=== PATIENT | female | born 1985 | race Caucasian/White ===

== ENCOUNTER 2017-07-05 12:09 | Emergency (ER) | payer OTHER ==
[~2017-07-05] VITALS: Ht 170.2 cm; Wt 63.5 kg
[~2017-07-05 12:09] MED LIST: EXCEDRIN ASA F1 EAC1; MULTIVITAMINS1 EAC7 PO; NAPROSYN500 MG PO; NOHOMEMEDICATIONS; NORCO 5-325 TA1 EACH PO; NORFLEX100 MG PO; ULTRAM 50MG TAB50 MG PO; WELLBUTRIN SR150 MG PO; XANAX 0.5 MG0.5 M1 PO; ZOFRAN4 MG PO; ZPAK PO
[2017-07-05 13:18] LABS: ABSOLUTE NEUTROPHILS 7.7 thou/uL (1.4-8.2); BASOPHILS 0.5 % (0.0-2.0); EOSINOPHILS 3.4 % (0.0-3.0); HEMATOCRIT 39.5 % (37.0-47.0); HEMOGLOBIN 13.4 gm/dL (12.0-15.0); LYMPHOCYTES 27.5 % (24.0-44.0); MCH 33.3 pg (26.0-34.0); MCV 97.7 fL (80.0-100.0); MONOCYTES 8.5 % (1.0-8.0); PLATELET COUNT 296 thou/uL (150-400); POLYS 60.1 % (36.0-66.0); RBC 4.04 mil/uL (4.20-5.00); RDW 13.6 % (10.5-14.5); WBC 12.8 thou/uL (4.0-11.0)
[2017-07-05 13:24] LABS: MANUAL DIFF NO
[2017-07-05 13:28] LABS: CREATININE 0.6 mg/dL (0.6-1.0); POTASSIUM 4.1 mmol/L (3.5-5.1)
[2017-07-05 13:32] LABS: ALBUMIN 3.9 g/dL (3.4-5.0); TOTAL BILIRUBIN 0.3 mg/dL (<0.1-1.0); TOTAL PROTEIN 7.3 g/dL (6.4-8.2)
[2017-07-05] MEDS ORDERED: CLEOCIN HCL150 MG PO (15:37)
[2017-07-05] MEDS ORDERED: AMOX TR-K CLV1 EAC4 PO (15:37)
[2017-07-05] MEDS ORDERED: HYDROCODONE-AP1 EAC6 PO (15:39)
[2017-07-05 16:21] VITALS: BP 124/79
== END 2017-07-05 16:22 | disposition home or self-care (01) ==
LOC: ER 12:09
PROVIDERS: Physician Assistant
DX: K12.2 Cellulitis and abscess of mouth (principal); K04.7 Periapical abscess without sinus; G43.909 Migraine, unspecified, not intractable, without status migrainosus; F17.210 Nicotine dependence, cigarettes, uncomplicated; F10.99 Alcohol use, unspecified with unspecified alcohol-induced disorder; Z88.8 Allergy status to other drugs, medicaments and biological substances

== ENCOUNTER 2017-07-07 15:02 | Emergency (ER) | payer OTHER ==
[~2017-07-07] VITALS: Ht 162.6 cm; Wt 61.2 kg
[~2017-07-07 15:02] MED LIST changes: +AMOX TR-K CLV1 EAC4 PO; +CLEOCIN HCL150 MG PO; +HYDROCODONE-AP1 EAC6 PO
[2017-07-07] MEDS ORDERED: PERCOCET 5-3251 EACH PO (15:23)
[2017-07-07 16:18] VITALS: BP 118/89
== END 2017-07-07 16:20 | disposition home or self-care (01) ==
LOC: ER 15:02
DX: K02.9 Dental caries, unspecified (principal); K12.2 Cellulitis and abscess of mouth; G43.909 Migraine, unspecified, not intractable, without status migrainosus; F17.210 Nicotine dependence, cigarettes, uncomplicated; F10.99 Alcohol use, unspecified with unspecified alcohol-induced disorder; Z88.8 Allergy status to other drugs, medicaments and biological substances